=== PATIENT | male | born 1990 | race Caucasian/White ===

== ENCOUNTER 2019-07-29 17:45 | Emergency (ER) | payer OTHER ==
[2019-07-29 18:15] VITALS: BP 132/90
[2019-07-29] MEDS ORDERED: DIPH/PERTUSS(ACELL)/TETANUS VAC/PF 0.5 ML SYR (>=10YO) IM ONE (18:26)
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
--- NOTE | 2019-07-29 18:55 | RADIOLOGY REPORT (SQ) ---
EXAM DESCRIPTION: FINGER RIGHT COMPLETED DATE/TIME: 07/29/2019 5:40 pm REASON FOR STUDY: Drill bit through the right thumb COMPARISON: None. NUMBER OF VIEWS: Three views. TECHNIQUE: AP, lateral, and oblique images acquired of the right 1st digit LIMITATIONS: None. FINDINGS: MINERALIZATION: Normal. BONES: No acute fracture or dislocation. No worrisome bone lesions. SOFT TISSUES: No soft tissue swelling. No foreign body. OTHER: No other significant finding. IMPRESSION: No radiographic abnormality of the right 1st digit. No radiopaque foreign body. COMMENT: SITE OF TRAUMA/COMPLAINT MARKED/STAMP COMPLETED: NA TECHNICAL DOCUMENTATION: JOB ID: [id number] 2010 [employer]- All Rights Reserved Reading location - IP/workstation name: [email or web address]
[2019-07-29] MEDS ORDERED: AMOXICILLIN TR/POT CLAVULANATE 500-125 MG TAB PO ONE (19:13)
== END 2019-07-29 19:47 | disposition home or self-care (01) ==
LOC: ER 17:45
DX: S61.031A Puncture wound without foreign body of right thumb without damage to nail, initial encounter (principal); W29.8XXA Contact with other powered hand tools and household machinery, initial encounter; Y93.89 Activity, other specified; Y92.009 Unspecified place in unspecified non-institutional (private) residence as the place of occurrence of the external cause; Z72.0 Tobacco use; Z23 Encounter for immunization
CPT/HCPCS: 90471; 90715; 99283

== ENCOUNTER 2020-02-20 08:09 | Inpatient (IN) | payer OTHER ==
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
[2020-02-20 11:29] LABS: ABSOLUTE BASOPHILS # (AUTO) 0.1 10^3/uL (0.0-0.2); ABSOLUTE EOSINOPHILS # (AUTO) 0.1 10^3/uL (0.0-0.6); ABSOLUTE LYMPHOCYTES (AUTO) 1.7 10^3/uL (0.5-4.7); ABSOLUTE MONOCYTES (AUTO) 1.1 10^3/uL (0.1-1.4); ABSOLUTE NEUT (AUTO) 11.9 10^3/uL (1.7-8.2); BASOPHILS % (AUTO) 0.6 % (0-2); EOSINOPHILS % (AUTO) 0.4 % (0-6); HEMATOCRIT 47.5 % (37.9-51.0); HEMOGLOBIN 16.5 g/dL (13.5-17.0); LYMPHOCYTES % (AUTO) 11.6 % (13-45); MEAN CORPUSCULAR HEMOGLOBIN 30.2 pg (27.0-33.4); MEAN CORPUSCULAR HGB CONC 34.8 g/dL (32.0-36.0); MEAN CORPUSCULAR VOLUME 87 fl (80-97); MONOCYTES % (AUTO) 7.6 % (3-13); PLATELET COUNT 222 10^3/uL (150-450); RED BLOOD COUNT 5.48 10^6/uL (4.35-5.55); RED CELL DISTRIBUTION WIDTH 13.3 % (11.5-14.0); SEGMENTED NEUTROPHILS % (AUTO) 79.8 % (42-78); TOTAL CELLS COUNTED % (AUTO) 100 %; WHITE BLOOD COUNT 14.8 10^3/uL (4.0-10.5)
[2020-02-20 11:57] LABS: ALBUMIN 4.6 g/dL (3.5-5.0); ALKALINE PHOSPHATASE 102 U/L (38-126); ANION GAP 11 (5-19); ASPARTATE AMINO TRANSFERASE 28 U/L (17-59); BILIRUBIN,DIRECT 0.4 mg/dL (0.0-0.4); BILIRUBIN,TOTAL 2.1 mg/dL (0.2-1.3); BLOOD UREA NITROGEN 15 mg/dL (7-20); CALCIUM 9.2 mg/dL (8.4-10.2); CARBON DIOXIDE 23 mmol/L (22-30); CHLORIDE 102 mmol/L (98-107); CREATINE KINASE 140 U/L (55-170); GLUCOSE 106 mg/dL (75-110); POTASSIUM 4.3 mmol/L (3.6-5.0); TOTAL PROTEIN 7.4 g/dL (6.3-8.2)
[2020-02-20 11:58] LABS: BILIRUBIN,URINE NEGATIVE (NEGATIVE); GLUCOSE, URINE NEGATIVE (NEGATIVE); KETONES,URINE NEGATIVE (NEGATIVE); LEUKOCYTE ESTERASE,URINE NEGATIVE (NEGATIVE); NITRITE,URINE POSITIVE (NEGATIVE); PROTEIN,URINE 100 mg/dL (NEGATIVE); URINE SPECIFIC GRAVITY 1.025; UROBILINOGEN,URINE NEGATIVE mg/dL (<2.0)
[2020-02-20 11:59] LABS: APPEARANCE,URINE TURBID; COLOR,URINE RED
[2020-02-20] MEDS ORDERED: CEFTRIAXONE 1 GM/D5W RTU 1 GM/50 ML RTUPB IV ONE (12:31)
[2020-02-20] MEDS ORDERED: NORMAL SALINE 1000 ML 1,000 ML IV ONE (12:31)
[2020-02-20] MEDS ORDERED: DOXYCYCLINE HYCLATE 100 MG TABLET PO ONE (12:54)
[2020-02-20] MEDS ORDERED: MORPHINE SULFATE 10 MG/ML INJ IV ONE (13:51)
[2020-02-20] MEDS ORDERED: ONDANSETRON HCL INJ/PF 4 MG/2 ML SDV IV ONE (13:51)
[2020-02-20] MEDS ORDERED: ACETAMINOPHEN 325 MG TABLET PO ONE (15:03)
[2020-02-20] MEDS ORDERED: RINGERS SOLUTION,LACTATED 1,000 ML IV ONE (15:09)
--- NOTE | 2020-02-20 16:38 | RADIOLOGY REPORT (SQ) ---
EXAM DESCRIPTION: CT ABD/PELVIS NO ORAL OR IV IMAGES COMPLETED DATE/TIME: 02/20/2020 4:28 pm REASON FOR STUDY: Urosepsis COMPARISON: None. TECHNIQUE: CT scan of the abdomen and pelvis performed without intravenous or oral contrast. Images reviewed with lung, soft tissue, and bone windows. Reconstructed coronal and sagittal MPR images revi ewed. All images stored on PACS. All CT scanners at this facility use dose modulation, iterative reconstruction, and/or weight based d osing when appropriate to reduce radiation dose to as low as reasonably achievable (ALARA). [facility]: Dose Right [facility]: CareDose [facility]: Dose Right [facility]: Teradose 4D [facility]: [employer] RADIATION DOSE: CT Rad equipment meets quality standard of care and radiation dose reduction techniq ues were employed. CTDIvol: 18.9 mGy. DLP: 1147 mGy-cm.mGy. LIMITATIONS: None. FINDINGS: LOWER CHEST: No significant findings. No nodules or infiltrates. NON-CONTRASTED LIVER, SPLEEN, ADRENALS: Evaluation limited by lack of IV contrast. No identified sign ificant masses. PANCREAS: No masses. No peripancreatic inflammatory changes. GALLBLADDER: No identified stones by CT criteria. No inflammatory changes to suggest cholecystitis. RIGHT KIDNEY AND URETER: No suspicious masses. Assessment limited by lack of IV contrast. No signif icant calcifications. No hydronephrosis or hydroureter. LEFT KIDNEY AND URETER: No suspicious masses. Assessment limited by lack of IV contrast. No signifi cant calcifications. No hydronephrosis or hydroureter. AORTA AND RETROPERITONEUM: No aneurysm. No retroperitoneal masses or adenopathy. BOWEL AND PERITONEAL CAVITY: No obvious masses or inflammatory changes. No free fluid. APPENDIX: Normal. PELVIS, BLADDER, AND ABDOMINAL WALL:Thickening of the urinary bladder wall. BONES: No significant findings. OTHER: No other significant finding. IMPRESSION: Bladder wall thickening. No evidence of urinary tract stones or hydronephrosis. COMMENT: Quality ID # [id number]: Final reports with documentation of one or more dose reduction techniques (e.g., Automated exposure control, adjustment of the mA and/or kV according to patient size, use of iterative reconstruction technique) TECHNICAL DOCUMENTATION: JOB ID: [id number] 2010 [employer]- All Rights Reserved Reading location - IP/workstation name: [email or web address]
[2020-02-20] MEDS ORDERED: ONDANSETRON HCL INJ/PF 4 MG/2 ML SDV IV PRN (17:17)
[2020-02-20] MEDS ORDERED: ACETAMINOPHEN 325 MG TABLET PO PRN (17:17)
[2020-02-20] MEDS ORDERED: ONDANSETRON 4 MG TAB.RAPDIS PO PRN (17:17)
--- NOTE | 2020-02-20 17:37 | PDOC H&P ---
History of Present Illness Admission Date/PCP: 02/20/20 16:21 COURTNEY GARCIA History of Present Illness: VLADIMIR ZIEGLER is a 29 year old male with past medical history significant for kidney stones, inguinal hernia repair who presents with a 2-day history of progressive fever/chills/headache/low back pain/hematuria which patient states is consistent with previous kidney stones however he notes not being as acutely ill previously as he currently feels. Patient noted to be tachycardic and febrile greater than 101 degrees, WBC up to approximately 15, creatinine elevated at 1.27. UA with obvious infection, urine culture sent and blood culture sent as well. Patient states he does have occasional anal sex with his but states they have not done this in at least a month. He states that he and his are monogamous. He denies any exposures to STDs and denies any coronavirus exposure. Patient denies taking any medications. Patient has tattoos but these are professionally done. Patient is admitted to the medical floor for sepsis read UTI, likely due to kidney stone. CT abdomen/pelvis reviewed which showed bladder wall thickening but did not show a stone or any other specific abnormality. Renal ultrasound ordered. Antibiotics and IV fluids ordered. Past Medical History Pulmonary Medical History: Reports: Pneumonia Neurological Medical History: Reports: Migraine Endocrine Medical History: Reports: Obesity Past Surgical History Past Surgical History: Reports: Herniorrhaphy, Tonsillectomy, Other - Skin graft right leg Social History Information Source: Patient, Emergency Med Personnel Lives with: Family Smoking Status: Former Smoker Frequency of Alcohol Use: Social Hx Recreational Drug Use: No Hx Prescription Drug Abuse: No - Advance Directive Resuscitation Status: Full Code Surrogate healthcare decision maker:: Felicity Family History Family History: Reviewed & Not Pertinent, Arthritis, DM, Hyperlipidemia, Hypertension, Malignancy, Thyroid Disfunction Parental Family History Reviewed: Yes Children Family History Reviewed: Yes Sibling(s) Family History Reviewed.: Yes Medication/Allergy Home Medications: No Home Medications 08/21/12 Allergies/Adverse Reactions: No Known Allergies Allergy (Verified 07/29/19 18:31) Review of Systems All systems: reviewed and no additional remarkable complaints except as stated - Review of systems per HPI otherwise negative Physical Exam Vital Signs: Temp Pulse Resp BP Pulse Ox 99.0 F 117 H 23 H 120/80 92 02/20/20 16:53 02/20/20 08:14 02/20/20 16:01 02/20/20 16:01 02/20/20 16:01 Intake & Output 02/19/20 02/20/20 02/21/20 06:59 06:59 06:59 Intake Total 2049 Balance 2049 Weight 120.6 kg General appearance: PRESENT: no acute distress, well-developed, well-nourished Head exam: PRESENT: atraumatic, normocephalic Eye exam: PRESENT: conjunctiva pink. ABSENT: scleral icterus Mouth exam: PRESENT: moist Respiratory exam: PRESENT: clear to auscultation sarah. ABSENT: rales, rhonchi, wheezes Cardiovascular exam: PRESENT: RRR. ABSENT: diastolic murmur, rubs, systolic murmur GI/Abdominal exam: PRESENT: normal bowel sounds, soft, tenderness - Suprapubic tenderness. ABSENT: distended, guarding, mass, organolmegaly, rebound Rectal exam: PRESENT: deferred - Rectal exam been done by ED, normal prostate exam reportedly Extremities exam: ABSENT: pedal edema Neurological exam: PRESENT: alert, awake, oriented to person, oriented to place, oriented to time, oriented to situation Psychiatric exam: PRESENT: appropriate affect, normal mood Skin exam: PRESENT: dry, intact, warm Results Laboratory Results: 02/20/20 11:00 02/20/20 11:00 02/20/20 02/20/20 02/20/20 11:00 11:00 11:00 WBC 14.8 H RBC 5.48 Hgb 16.5 Hct 47.5 MCV 87 MCH 30.2 MCHC 34.8 RDW 13.3 Plt Count 222 Seg Neutrophils % 79.8 H Sodium 136.1 L Potassium 4.3 Chloride 102 Carbon Dioxide 23 Anion Gap 11 BUN 15 Creatinine 1.27 H Est GFR ( Amer) > 60 Glucose 106 Calcium 9.2 Total Bilirubin 2.1 H AST 28 Alkaline Phosphatase 102 Total Protein 7.4 Albumin 4.6 Urine Color RED Urine Appearance TURBID Urine pH 5.0 Ur Specific Carbon 1.025 Urine Protein 100 H Urine Glucose (UA) NEGATIVE Urine Ketones NEGATIVE Urine Blood LARGE H Urine Nitrite POSITIVE H Ur Leukocyte Esterase NEGATIVE Urine WBC (Auto) >182 Urine RBC (Auto) 121 02/20/20 11:00 Creatine Kinase 140 Impressions: Abdomen/Pelvis CT 02/20/20 16:11 IMPRESSION: Bladder wall thickening. No evidence of urinary tract stones or hydronephrosis. Assessment and Plan - Diagnosis (1) Urinary tract infection Qualifiers: Urinary tract infection type: acute cystitis Hematuria presence: with hematuria Qualified Code(s): N30.01 - Acute cystitis with hematuria Is this a current diagnosis for this admission?: Yes Plan: Hematuria/fever/chills/tachycardia/suprapubic pain and tenderness for [address] abdomen/pelvis showed bladder wall thickening otherwise no acute abnormaliti es Suspect kidney stone is the source of infection and pain given patient has a history of this previously Ceftriaxone IV Rectal exam done by ED revealed reportedly normal prostate and overall normal exam otherwise IV fluids Monitor urine output Needs follow-up with urology outpatient (2) Sepsis Qualifiers: Sepsis type: sepsis due to unspecified organism Sepsis acute organ dysfunction status: with acute organ dysfunction Severe sepsis acute organ dysfunction type: acute renal failure Acute renal failure type: unspecified Severe sepsis shock status: without septic shock Qualified Code(s): A41.9 - Sepsis, unspecified organism; R65.20 - Severe sepsis without septic shock; N17.9 - Acute kidney failure, unspecified Is this a current diagnosis for this admission?: Yes Plan: Source is UTI IV fluids Antibiotics Trend lactate Monitor hemodynamics (3) TANJA (acute kidney injury) Is this a current diagnosis for this admission?: Yes Plan: Likely due to UTI and dehydration, suspect prerenal etiology IV fluids Trend BMP Renal ultrasound - Time Time Spent with patient: 35 or more minutes Medications reviewed and adjusted accordingly: Yes Anticipated Discharge Disposition: Home, Self Care Anticipated Discharge Timeframe: within 72 hours Disposition: Admitting diagnosis: UTI with sepsis All aspects of code status discussed with patient/POA including cardioversion, chest compressions, and intubation and the patient/POA indicated they wish to be full code MPOA is designated as: Felicity Time spent: Greater than 16 minutes - Inpatient Certification Based on my medical assessment, after consideration of the patient's comorbidities, presenting symptoms, or acuity I expect that the services needed warrant INPATIENT care.: Yes I certify that my determination is in accordance with my understanding of Medicare's requirements for reasonable and necessary INPATIENT services [42 CFR 412.3e].: Yes Medical Necessity: Significant Comorbidiites Make Outpatient Treatment Too Risky, Need Close Monitoring Due to Risk of Patient Decompensation, Need For IV Fluids, Need for Pain Control, Need for IV Antibiotics, Risk of Complication if Not Cared For in Hospital, Risk of Diagnosis Which Will Require Inpatient Eval/Care/Monitoring
[2020-02-20] MEDS ORDERED: HYDROMORPHONE HCL INJ/PF 2 MG/ML AMPULE IV PRN (17:38)
[2020-02-20] MEDS: HYDROMORPHONE HCL INJ/PF 2 MG/ML AMPULE IV PRN (18:41)
[2020-02-20] MEDS: RINGERS SOLUTION,LACTATED 1,000 ML IV PRN (21:14)
[2020-02-20] MEDS: HEPARIN SOD (PORCINE) 5,000 UNIT/ML 1 ML VIAL SUBCUT SCH (21:38)
[2020-02-21] MEDS: HYDROMORPHONE HCL INJ/PF 2 MG/ML AMPULE IV PRN ×4 (00:30→22:02)
[2020-02-21] MEDS: HEPARIN SOD (PORCINE) 5,000 UNIT/ML 1 ML VIAL SUBCUT SCH ×3 (05:16→22:12)
--- NOTE | 2020-02-21 05:59 | RADIOLOGY REPORT (SQ) ---
RENAL ULTRASOUND: 02/21/2020 4:57 AM CDT HISTORY: 29-year old with urinary tract infection, acute kidney injury. COMPARISON: CT of abdomen and pelvis from 02/20/2020 TECHNIQUE: Limited sonographic evaluation of the kidneys was performed. FINDINGS: Both kidneys demonstrate normal cortical echogenicity. The right kidney measures up to 11.3 cm in length. The left kidney measures up to 12.2 cm in length. No hydronephrosis is noted in either kidney. No free intraperitoneal fluid is seen. The visualized portions of the urinary bladder appear grossly unremarkable. The abdominal aorta and inferior vena cava are not well visualized. IMPRESSION: There is no evidence of hydronephrosis.
[2020-02-21 07:01] LABS: ABSOLUTE BASOPHILS # (AUTO) 0.1 10^3/uL (0.0-0.2); ABSOLUTE LYMPHOCYTES (AUTO) 1.5 10^3/uL (0.5-4.7); ABSOLUTE MONOCYTES (AUTO) 0.8 10^3/uL (0.1-1.4); ABSOLUTE NEUT (AUTO) 8.7 10^3/uL (1.7-8.2); BASOPHILS % (AUTO) 0.6 % (0-2); EOSINOPHILS % (AUTO) 0.4 % (0-6); HEMATOCRIT 39.7 % (37.9-51.0); LYMPHOCYTES % (AUTO) 13.6 % (13-45); MEAN CORPUSCULAR HEMOGLOBIN 30.4 pg (27.0-33.4); MEAN CORPUSCULAR HGB CONC 35.2 g/dL (32.0-36.0); MEAN CORPUSCULAR VOLUME 87 fl (80-97); PLATELET COUNT 157 10^3/uL (150-450); RED BLOOD COUNT 4.59 10^6/uL (4.35-5.55); RED CELL DISTRIBUTION WIDTH 12.8 % (11.5-14.0); SEGMENTED NEUTROPHILS % (AUTO) 78.4 % (42-78); TOTAL CELLS COUNTED % (AUTO) 100 %; WHITE BLOOD COUNT 11.1 10^3/uL (4.0-10.5)
[2020-02-21 07:13] LABS: ANION GAP 8 (5-19); BLOOD UREA NITROGEN 16 mg/dL (7-20); CALCIUM 8.6 mg/dL (8.4-10.2); CARBON DIOXIDE 26 mmol/L (22-30); CHLORIDE 102 mmol/L (98-107); GLUCOSE 98 mg/dL (75-110); PHOSPHORUS 3.2 mg/dL (2.5-4.5)
[2020-02-21] MEDS: DOCUSATE SODIUM 100 MG/10 ML UDC PO SCH (09:34)
[2020-02-21] MEDS: CEFTRIAXONE 2 GM/D5W RTU 2 GM/50 ML RTUPB IV SCH (09:35)
[2020-02-21] MEDS: RINGERS SOLUTION,LACTATED 1,000 ML IV PRN (09:39)
--- NOTE | 2020-02-21 17:01 | PDOC PROGRESS REPORT ---
Subjective Subjective:: VLADIMIR ZIEGLER is a 29 year old male with past medical history significant for kidney stones, inguinal hernia repair who presents with a 2-day history of progressive fever/chills/headache/low back pain/hematuria which patient states is consistent with previous kidney stones however he notes not being as acutely ill previously as he currently feels. Patient noted to be tachycardic and febrile greater than 101 degrees, WBC up to approximately 15, creatinine elevated at 1.27. UA with obvious infection, urine culture sent and blood culture sent as well. Patient states he does have occasional anal sex with his but states they have not done this in at least a month. He states that he and his are monogamous. He denies any exposures to STDs and denies any coronavirus exposure. Patient denies taking any medications. Patient has tattoos but these are professionally done. Patient is admitted to the medical floor for sepsis read UTI, likely due to kidney stone. CT abdomen/pelvis reviewed which showed bladder wall thickening but did not show a stone or any other specific abnormality. Renal ultrasound ordered. Antibiotics and IV fluids ordered. 02/21/2020 Patient is to be doing much better today. He noted overnight while urinating he passed a large painful clot and it seemed that his urine thereafter was much clearer with significantly less blood in it. He also notes his pain is notably improved. Very likely that he passed his kidney stone when this occurred. Renal ultrasound did not show any acute findings. White blood cell count is trending down. Patient is tolerating antibiotics well. Urine culture is still pending but preliminary results show gram-negative rods. Blood cultures are negative so far. Patient has no new complaints. Reason For Visit: UTI, SEPSIS,HEMATURIA Physical Exam Vital Signs: Temp Pulse Resp BP Pulse Ox 98.2 F 93 16 118/65 95 02/21/20 10:00 02/21/20 07:18 02/21/20 07:18 02/21/20 07:18 02/21/20 07:18 Intake & Output 02/20/20 02/21/20 02/22/20 06:59 06:59 06:59 Intake Total 2310 981 Output Total 600 Balance 1710 981 Weight 122.8 kg Exam: General appearance: PRESENT: no acute distress, well-developed, well-nourished, states he passed a large clot in his urine today Head exam: PRESENT: atraumatic, normocephalic Eye exam: PRESENT: conjunctiva pink. ABSENT: scleral icterus Mouth exam: PRESENT: moist Respiratory exam: PRESENT: clear to auscultation sarah. ABSENT: rales, rhonchi, wheezes Cardiovascular exam: PRESENT: RRR. ABSENT: diastolic murmur, rubs, systolic murmur GI/Abdominal exam: PRESENT: normal bowel sounds, soft, tenderness -mild suprapubic tenderness. ABSENT: distended, guarding, mass, organolmegaly, rebound Rectal exam: PRESENT: deferred - Rectal exam been done by ED, normal prostate exam reportedly Extremities exam: ABSENT: pedal edema Neurological exam: PRESENT: alert, awake, oriented to person, oriented to place, oriented to time, oriented to situation Psychiatric exam: PRESENT: appropriate affect, normal mood Skin exam: PRESENT: dry, intact, warm Results Laboratory Results: 02/21/20 06:37 02/21/20 06:37 02/21/20 02/21/20 02/21/20 06:37 06:37 06:37 WBC 11.1 H RBC 4.59 Hgb 14.0 D Hct 39.7 MCV 87 MCH 30.4 MCHC 35.2 RDW 12.8 Plt Count 157 Seg Neutrophils % 78.4 H Sodium 135.8 L Potassium 4.0 Chloride 102 Carbon Dioxide 26 Anion Gap 8 BUN 16 Creatinine 1.14 Est GFR ( Amer) > 60 Glucose 98 Lactic Acid 0.6 L Calcium 8.6 Phosphorus 3.2 Magnesium 1.9 02/20/20 11:00 Creatine Kinase 140 Impressions: Abdomen/Pelvis CT 02/20/20 16:11 IMPRESSION: Bladder wall thickening. No evidence of urinary tract stones or hydronephrosis. Renal Ultrasound 02/21/20 00:00 IMPRESSION: There is no evidence of hydronephrosis. Assessment and Plan - Diagnosis (1) Urinary tract infection Qualifiers: Urinary tract infection type: acute cystitis Hematuria presence: with hematuria Qualified Code(s): N30.01 - Acute cystitis with hematuria Is this a current diagnosis for this admission?: Yes Plan: Hematuria/fever/chills/tachycardia/suprapubic pain and tenderness for [address] abdomen/pelvis showed bladder wall thickening otherwise no acute abnormalities Suspect kidney stone is the source of infection and pain given patient has a history of this previously Ceftriaxone IV Rectal exam done by ED revealed reportedly normal prostate and overall normal exam otherwise IV fluids Monitor urine output Needs follow-up with urology outpatient Urine culture growing gram-negative rods Blood cultures negative (2) Sepsis Qualifiers: Sepsis type: sepsis due to unspecified organism Sepsis acute organ dysfunction status: with acute organ dysfunction Severe sepsis acute organ dysfunction type: acute renal failure Acute renal failure type: unspecified Severe sepsis shock status: without septic shock Qualified Code(s): A41.9 - Sepsis, unspecified organism; R65.20 - Severe sepsis without septic shock; N17.9 - Acute kidney failure, unspecified Is this a current diagnosis for this admission?: Yes Plan: Source is UTI IV fluids Antibiotics Trend lactate Monitor hemodynamics Resolved (3) TANJA (acute kidney injury) Is this a current diagnosis for this admission?: Yes Plan: Likely due to UTI and dehydration, suspect prerenal etiology IV fluids Trend BMP Renal ultrasound showed no acute abnormalities Resolved (4) Kidney stone Is this a current diagnosis for this admission?: Yes Plan: Has had kidney stones in the past and has a strong family history of kidney stones as well Overnight after admission patient passed a large clot and likely kidney stone, urine significantly less bloody thereafter - Time Time Spent with patient: 25-34 minutes Medications reviewed and adjusted accordingly: Yes Anticipated Discharge Disposition: Home, Self Care Anticipated Discharge Timeframe: within 24 hours - Inpatient Certification Based on my medical assessment, after consideration of the patient's comorbidities, presenting symptoms, or acuity I expect that the services needed warrant INPATIENT care.: Yes I certify that my determination is in accordance with my understanding of Medicare's requirements for reasonable and necessary INPATIENT services [42 CFR 412.3e].: Yes Medical Necessity: Significant Comorbidiites Make Outpatient Treatment Too Risky, Need Close Monitoring Due to Risk of Patient Decompensation, Need For IV Fluids, Need for IV Antibiotics, Risk of Complication if Not Cared For in Hospital, Risk of Diagnosis Which Will Require Inpatient Eval/Care/Monitoring
[2020-02-22] MEDS: RINGERS SOLUTION,LACTATED 1,000 ML IV PRN (01:58)
[2020-02-22 05:15] LABS: ABSOLUTE EOSINOPHILS # (AUTO) 0.2 10^3/uL (0.0-0.6); ABSOLUTE LYMPHOCYTES (AUTO) 1.7 10^3/uL (0.5-4.7); ABSOLUTE MONOCYTES (AUTO) 0.6 10^3/uL (0.1-1.4); ABSOLUTE NEUT (AUTO) 3.9 10^3/uL (1.7-8.2); BASOPHILS % (AUTO) 0.5 % (0-2); EOSINOPHILS % (AUTO) 2.5 % (0-6); HEMATOCRIT 41.6 % (37.9-51.0); HEMOGLOBIN 14.6 g/dL (13.5-17.0); LYMPHOCYTES % (AUTO) 26.1 % (13-45); MEAN CORPUSCULAR HEMOGLOBIN 30.6 pg (27.0-33.4); MEAN CORPUSCULAR HGB CONC 35.1 g/dL (32.0-36.0); MEAN CORPUSCULAR VOLUME 87 fl (80-97); MONOCYTES % (AUTO) 9.4 % (3-13); PLATELET COUNT 152 10^3/uL (150-450); RED BLOOD COUNT 4.77 10^6/uL (4.35-5.55); RED CELL DISTRIBUTION WIDTH 12.9 % (11.5-14.0); SEGMENTED NEUTROPHILS % (AUTO) 61.5 % (42-78); TOTAL CELLS COUNTED % (AUTO) 100 %; WHITE BLOOD COUNT 6.4 10^3/uL (4.0-10.5)
[2020-02-22 05:34] LABS: ANION GAP 9 (5-19); BLOOD UREA NITROGEN 16 mg/dL (7-20); CALCIUM 8.8 mg/dL (8.4-10.2); CARBON DIOXIDE 28 mmol/L (22-30); CHLORIDE 101 mmol/L (98-107); GLUCOSE 88 mg/dL (75-110); POTASSIUM 4.3 mmol/L (3.6-5.0)
[2020-02-22] MEDS: HEPARIN SOD (PORCINE) 5,000 UNIT/ML 1 ML VIAL SUBCUT SCH (05:36)
[2020-02-22] MEDS: CEFTRIAXONE 2 GM/D5W RTU 2 GM/50 ML RTUPB IV SCH (09:41)
[2020-02-22] MEDS: HYDROMORPHONE HCL INJ/PF 2 MG/ML AMPULE IV PRN (09:55)
--- NOTE | 2020-02-22 10:25 | PDOC DISCHARGE SUMMARY ---
Impression - Admit/DC Date/PCP Admission Date/Primary Care Provider: 02/20/20 16:21 COURTNEY GARCIA Discharge Date: 02/22/20 - Discharge Diagnosis (1) Urinary tract infection Is this a current diagnosis for this admission?: Yes (2) Sepsis Is this a current diagnosis for this admission?: Yes (3) TANJA (acute kidney injury) Is this a current diagnosis for this admission?: Yes (4) Kidney stone Is this a current diagnosis for this admission?: Yes - Additional Information Resuscitation Status: Full Code Discharge Diet: As Tolerated, Regular Discharge Activity: Activity As Tolerated, Balance Activity w/Rest Referrals: KRYSTAL SOLORZANO FNP [Primary Care Provider] - Follow up as needed Prescriptions: Sulfamethoxazole/Trimethoprim [Bactrim Ds Tablet] 1 each PO BID 8 Days #16 tablet Oxycodone HCl/Acetaminophen [Percocet 5-325 mg Tablet] 1 tab PO Q6HP PRN #12 tab PRN Reason: For Pain Scale 3-5 Home Medications: Oxycodone HCl/Acetaminophen [Percocet 5-325 mg Tablet] 1 tab PO Q6HP PRN #12 tab 02/22/20 Sulfamethoxazole/Trimethoprim [Bactrim Ds Tablet] 1 each PO BID 8 Days #16 tablet 02/22/20 History of Present Illiness History of Present Illness: VLADIMIR ZIEGLER is a 29 year old male with past medical history significant for kidney stones, inguinal hernia repair who presents with a 2-day history of progressive fever/chills/headache/low back pain/hematuria which patient states is consistent with previous kidney stones however he notes not being as acutely ill previously as he currently feels. Patient noted to be tachycardic and febrile greater than 101 degrees, WBC up to approximately 15, creatinine elevated at 1.27. UA with obvious infection, urine culture sent and blood culture sent as well. Patient states he does have occasional anal sex with his but states they have not done this in at least a month. He states that he and his are monogamous. He denies any exposures to STDs and denies any coronavirus exposure. Patient denies taking any medications. Patient has tattoos but these are professionally done. Patient is admitted to the medical floor for sepsis read UTI, likely due to kidney stone. CT abdomen/pelvis reviewed which showed bladder wall thickening but did not show a stone or any other specific abnormality. Renal ultrasound ordered. Antibiotics and IV fluids ordered. Hospital Course Hospital Course: VLADIMIR ZIEGLER is a 29 year old male with past medical history significant for kidney stones, inguinal hernia repair who presents with a 2-day history of progressive fever/chills/headache/low back pain/hematuria which patient states is consistent with previous kidney stones however he notes not being as acutely ill previously as he currently feels. Patient noted to be tachycardic and febrile greater than 101 degrees, WBC up to approximately 15, creatinine eleva misti at 1.27. UA with obvious infection, urine culture sent and blood culture sent as well. Patient states he does have occasional anal sex with his but states they have not done this in at least a month. He states that he and his are monogamous. He denies any exposures to STDs and denies any coronavirus exposure. Patient denies taking any medications. Patient has tattoos but these are professionally done. Patient is admitted to the medical floor for sepsis read UTI, likely due to kidney stone. CT abdomen/pelvis reviewed which showed bladder wall thickening but did not show a stone or any other specific abnormality. Renal ultrasound ordered. Antibiotics and IV fluids ordered. 02/21/2020 Patient is to be doing much better today. He noted overnight while urinating he passed a large painful clot and it seemed that his urine thereafter was much clearer with significantly less blood in it. He also notes his pain is notably improved. Very likely that he passed his kidney stone when this occurred. Renal ultrasound did not show any acute findings. White blood cell count is trending down. Patient is tolerating antibiotics well. Urine culture is still pending but preliminary results show gram-negative rods. Blood cultures are negative so far. Patient has no new complaints. Urine culture grew multi-sensitive E. coli, patient discharged on Bactrim for an additional 8 days. Per patient, he continues to improve and feels very well today and would like to go home. Percocet 53 25 prescribed with 12 tablets and no refills. Patient must follow-up with PCP within 1 week and I encouraged him to stay well-hydrated long-term in order to prevent future kidney stones from collecting. (1) Urinary tract infection Qualifiers: Urinary tract infection type: acute cystitis Hematuria presence: with hematuria Qualified Code(s): N30.01 - Acute cystitis with hematuria Is this a current diagnosis for this admission?: Yes Plan: Hematuria/fever/chills/tachycardia/suprapubic pain and tenderness for [address] abdomen/pelvis showed bladder wall thickening otherwise no acute abnormalities Suspect kidney stone is the source of infection and pain given patient has a history of this previously Ceftriaxone IV, discharged on additional 8 days of Bactrim to complete 10-day course Rectal exam done by ED revealed reportedly normal prostate and overall normal exam otherwise IV fluids Monitor urine output Needs follow-up with urology outpatient Urine culture growing multi-sensitive E. coli Blood cultures negative (2) Sepsis Qualifiers: Sepsis type: sepsis due to unspecified organism Sepsis acute organ dysfunction status: with acute organ dysfunction Severe sepsis acute organ dysfunction type: acute renal failure Acute renal failure type: unspecified Severe sepsis shock status: without septic shock Qualified Code(s): A41.9 - Sepsis, unspecified organism; R65.20 - Severe sepsis without septic shock; N17.9 - Acute kidney failure, unspecified Is this a current diagnosis for this admission?: Yes Plan: Source is UTI IV fluids Antibiotics Trend lactate Monitor hemodynamics Resolved (3) TANJA (acute kidney injury) Is this a current diagnosis for this admission?: Yes Plan: Likely due to UTI and dehydration, suspect prerenal etiology IV fluids Trend BMP Renal ultrasound showed no acute abnormalities Resolved (4) Kidney stone Is this a current diagnosis for this admission?: Yes Plan: Has had kidney stones in the past and has a strong family history of kidney stones as well Overnight after admission patient passed a large clot and likely kidney stone in his urine, afterwards urine significantly less bloody thereafter and pain improved Physical Exam Vital Signs: Temp Pulse Resp BP Pulse Ox 97.8 F 76 16 127/68 H 99 02/22/20 09:09 02/22/20 08:15 02/22/20 08:15 02/22/20 08:15 02/22/20 08:15 Intake & Output 02/21/20 02/22/20 02/23/20 06:59 06:59 06:59 Intake Total 2310 2741 Output Total 600 400 Balance 1710 2341 Weight 122.8 kg 122.8 kg Exam: General appearance: PRESENT: no acute distress, well-developed, well-nourished, states he feels well and would like to go home Head exam: PRESENT: atraumatic, normocephalic Eye exam: PRESENT: conjunctiva pink. ABSENT: scleral icterus Mouth exam: PRESENT: moist Respiratory exam: PRESENT: clear to auscultation sarah. ABSENT: rales, rhonchi, wheezes Cardiovascular exam: PRESENT: RRR. ABSENT: diastolic murmur, rubs, systolic murmur GI/Abdominal exam: PRESENT: normal bowel sounds, soft, almost completely resolved tenderness -mild suprapubic. ABSENT: distended, guarding, mass, organolmegaly, rebound Rectal exam: PRESENT: deferred - Rectal exam been done by ED, normal prostate exam reportedly Extremities exam: ABSENT: pedal edema Neurological exam: PRESENT: alert, awake, oriented to person, oriented to place, oriented to time, oriented to situation Psychiatric exam: PRESENT: appropriate affect, normal mood Skin exam: PRESENT: dry, intact, warm Results Laboratory Results: WBC 6.4 10^3/uL (4.0-10.5) 02/22/20 04:57 RBC 4.77 10^6/uL (4.35-5.55) 02/22/20 04:57 Hgb 14.6 g/dL (13.5-17.0) 02/22/20 04:57 Hct 41.6 % (37.9-51.0) 02/22/20 04:57 MCV 87 fl (80-97) 02/22/20 04:57 MCH 30.6 pg (27.0-33.4) 02/22/20 04:57 MCHC 35.1 g/dL (32.0-36.0) 02/22/20 04:57 RDW 12.9 % (11.5-14.0) 02/22/20 04:57 Plt Count 152 10^3/uL (150-450) 02/22/20 04:57 Lymph % (Auto) 26.1 % (13-45) 02/22/20 04:57 Hardy % (Auto) 9.4 % (3-13) 02/22/20 04:57 Eos % (Auto) 2.5 % (0-6) 02/22/20 04:57 Baso % (Auto) 0.5 % (0-2) 02/22/20 04:57 Absolute Neuts (auto) 3.9 10^3/uL (1.7-8.2) 02/22/20 04:57 Absolute Lymphs (auto) 1.7 10^3/uL (0.5-4.7) 02/22/20 04:57 Absolute Monos (auto) 0.6 10^3/uL (0.1-1.4) 02/22/20 04:57 Absolute Eos (auto) 0.2 10^3/uL (0.0-0.6) 02/22/20 04:57 Absolute Basos (auto) 0.0 10^3/uL (0.0-0.2) 02/22/20 04:57 Seg Neutrophils % 61.5 % (42-78) 02/22/20 04:57 Sodium 137.6 mmol/L (137-145) 02/22/20 04:57 Potassium 4.3 mmol/L (3.6-5.0) 02/22/20 04:57 Chloride 101 mmol/L (98-107) 02/22/20 04:57 Carbon Dioxide 28 mmol/L (22-30) 02/22/20 04:57 Anion Gap 9 (5-19) 02/22/20 04:57 BUN 16 mg/dL (7-20) 02/22/20 04:57 Creatinine 1.09 mg/dL (0.52-1.25) 02/22/20 04:57 Est GFR ( Amer) > 60 (>60) 02/22/20 04:57 Est GFR (MDRD) Non-Af > 60 (>60) 02/22/20 04:57 Glucose 88 mg/dL (75-110) 02/22/20 04:57 Lactic Acid 0.7 mmol/L (0.7-2.1) 02/22/20 04:57 Calcium 8.8 mg/dL (8.4-10.2) 02/22/20 04:57 Phosphorus 3.2 mg/dL (2.5-4.5) 02/21/20 06:37 Magnesium 1.9 mg/dL (1.6-2.3) 02/21/20 06:37 Total Bilirubin 2.1 mg/dL (0.2-1.3) H 02/20/20 11:00 Direct Bilirubin 0.4 mg/dL (0.0-0.4) 02/20/20 11:00 Neonat Total Bilirubin Not Reportable 02/20/20 11:00 Neonat Direct Bilirubin Not Reportable 02/20/20 11:00 Neonat Indirect Bili Not Reportable 02/20/20 11:00 AST 28 U/L (17-59) 02/20/20 11:00 ALT 27 U/L (<50) 02/20/20 11:00 Alkaline Phosphatase 102 U/L (38-126) 02/20/20 11:00 Creatine Kinase 140 U/L (55-170) 02/20/20 11:00 Total Protein 7.4 g/dL (6.3-8.2) 02/20/20 11:00 Albumin 4.6 g/dL (3.5-5.0) 02/20/20 11:00 Urine Color RED 02/20/20 11:00 Urine Appearance TURBID 02/20/20 11:00 Urine pH 5.0 (5.0-9.0) 02/20/20 11:00 Ur Specific [place]arton 1.025 02/20/20 11:00 Urine Protein 100 mg/dL (NEGATIVE) H 02/20/20 11:00 Urine Glucose (UA) NEGATIVE mg/dL (NEGATIVE) 02/20/20 11:00 Urine Ketones NEGATIVE mg/dL (NEGATIVE) 02/20/20 11:00 Urine Blood LARGE (NEGATIVE) H 02/20/20 11:00 Urine Nitrite POSITIVE (NEGATIVE) H 02/20/20 11:00 Urine Bilirubin NEGATIVE (NEGATIVE) 02/20/20 11:00 Urine Urobilinogen NEGATIVE mg/dL (<2.0) 02/20/20 11:00 Ur Leukocyte Esterase NEGATIVE (NEGATIVE) 02/20/20 11:00 Urine WBC (Auto) >182 /HPF 02/20/20 11:00 Urine RBC (Auto) 121 /HPF 02/20/20 11:00 Urine Bacteria (Auto) 2+ /HPF 02/20/20 11:00 Urine WBC Clumps MOD /HPF 02/20/20 11:00 Urine Mucus (Auto) MANY /LPF 02/20/20 11:00 Urine Ascorbic Acid NEGATIVE (NEGATIVE) 02/20/20 11:00 Impressions: Abdomen/Pelvis CT 02/20/20 16:11 IMPRESSION: Bladder wall thickening. No evidence of urinary tract stones or hydronephrosis. Renal Ultrasound 02/21/20 00:00 IMPRESSION: There is no evidence of hydronephrosis. Plan Plan of Treatment: Follow-up with PCP Stay well-hydrated Bactrim for an additional 8 days Time Spent: Greater than 30 Minutes Stroke Is this a Stroke Patient?: No Acute Heart Failure Is this a Heart Failure Patient?: No
[2020-02-22 10:37] VITALS: BP 122/68
[2020-02-22] MEDS: DOCUSATE SODIUM 100 MG/10 ML UDC PO SCH (11:07)
== END 2020-02-22 11:45 | disposition home or self-care (01) | DRG 872 ==
LOC: ER 08:09 → EH 16:21 → 4N 17:21
PROVIDERS: ADMIT Internal Medicine; ATTEND Internal Medicine
DX: A41.9 Sepsis, unspecified organism (principal); N17.9 Acute kidney failure, unspecified; N30.01 Acute cystitis with hematuria; L03.115 Cellulitis of right lower limb; R65.20 Severe sepsis without septic shock; N20.0 Calculus of kidney; B96.20 Unspecified Escherichia coli [E. coli] as the cause of diseases classified elsewhere
CPT/HCPCS: 36415; 74176; 76770; 80048; 80053; 81001; 82550; 83605; 83735; 84100; 85025; 87040; 87086; 87088; 87186; 96361; 96365; 96375; 99285; J0696; J1170; J1644; J2270; J2405; J7030; J7120